=== PATIENT | male | born 1975 | race Caucasian/White ===

== ENCOUNTER 2018-07-15 16:21 | Observation (INO) | payer OTHER ==
[2018-07-15 17:37] LABS: #Basophils 0.1 thou/uL (0.0-0.2); #Eosinphils 0.4 thou/uL (0.0-0.7); #Lymphocytes 2.9 thou/uL (1.20-3.40); #Monocytes 0.7 thou/uL (0.11-0.59); #Neutrophils 9.3 thou/uL (1.40-6.50); %Basophils 0.8 % (0.0-1.0); %Eosinophils 3.2 % (0.0-10.0); %Lymphocytes 21.4 % (21.0-51.0); %Monocytes 5.2 % (0.0-10.0); %Neutrophils 69.4 % (42.0-75.0); Hemoglobin 15.5 g/dL (14.0-18.0); Mean Corpuscular HGB CONC 33.9 g/dL (32.0-36.0); Mean Corpuscular Hemoglobin 32.1 pg (27.0-31.0); Mean Corpuscular Volume 94.8 fL (78.0-98.0); Mean Platelet Volume 8.6 fL (7.4-10.4); Platelet Count 322 thou/uL (130-400); RBC Distribution Width 11.2 % (11.5-14.5); Red Blood Cell (RBC) Count 4.81 mill/uL (4.70-6.10); White Blood Cell (WBC) Count 13.4 thou/uL (4.8-10.8)
[2018-07-15 17:54] LABS: ALT (SGPT) 36 U/L (8-55); AST (SGOT) 18 U/L (5-34); Alkaline Phosphatase 51 U/L (40-150); Anion Gap 15 mmol/L (10-20); BUN (Urea Nitrogen) 16 mg/dL (8.9-20.6); Bilirubin, Total 0.4 mg/dL (0.2-1.2); Calc. Creatinine Clearance 0 mL/min (70-130); Calcium 8.6 mg/dL (7.8-10.44); Carbon Dioxide 19 mmol/L (22-29); Chloride 107 mmol/L (98-107); Estimated GFR-MDRD Greater than 90; Globulin 2.9 g/dL (2.4-3.5); Glucose 108 mg/dL (70-105); Potassium 4.2 mmol/L (3.5-5.1); Protein, Total 6.9 g/dL (6.0-8.3); Sodium 137 mmol/L (136-145)
[2018-07-15 17:59] LABS: CKMB 1.2 ng/mL (0-6.6); Troponin I Less than 0.010 ng/mL (< 0.028)
--- NOTE | 2018-07-15 17:59 | RAD ---
SINGLE VIEW OF THE CHEST: COMPARISON: None. HISTORY: Numbness and tingling. FINDINGS: Single view of the chest shows a normal sized cardiomediastinal silhouette. There is no evidence of c onsolidation, mass, or pleural effusion. The bones are unremarkable. IMPRESSION: No evidence of acute cardiopulmonary disease. POS: [facility]
[2018-07-15] MEDS ORDERED: Metoclopramide HCl 10 MG/2 ML VIAL ONE (18:05)
[2018-07-15] MEDS ORDERED: diphenhydrAMINE 50 MG/ML VIAL ONE (18:05)
--- NOTE | 2018-07-15 18:22 | CT ---
CT OF THE BRAIN WITHOUT CONTRAST: 07/15/18 COMPARISON: None. HISTORY: Lightheadedness and numbness in the left side. Headache. TECHNIQUE: Multiple contiguous axial images were obtained in a CT of the brain without contrast. FINDINGS: The brain is normal in morphology and attenuation without focal lesions or confluent areas of infarct ion. There is no evidence of hydrocephalus, intracranial hemorrhage or extra-axial fluid collections. The calvarium and overlying soft tissues are unremarkable. The visualized paranasal sinuses and masto id air cells are well aerated. IMPRESSION: No evidence of acute intracranial abnormality. POS: [facility]
[2018-07-15] MEDS ORDERED: Ondansetron HCl/PF 4 MG/2 ML Vial IVP PRN (19:42)
[2018-07-15] MEDS ORDERED: Dextrose 5% in Water 1,000 ML IV PRN (20:22)
[2018-07-15] MEDS ORDERED: HumaLOG 300 UNITS/3 ML VIAL SC PRN (20:22)
[2018-07-15] MEDS ORDERED: Dextrose 50% Abboject 50 ML SYRINGE SLOW IVP PRN (20:22)
--- NOTE | 2018-07-15 20:48 | HP ---
PRIMARY CARE PHYSICIAN: [facility]. CODE STATUS: FULL CODE. Time of evaluation: 07:35 PM CHIEF COMPLAINT: Left-sided weakness. HISTORY OF PRESENT ILLNESS: This is a 43-year-old male patient with past medical history of diabetes, hypertension, hyperlipidemia, asthma, came to the hospital after having left-sided weakness, tingling, numbness, the patient has reported that he has had this problem for 3 days, getting worse today, he reported that he can walk, but he is still uncomfortable, there are no clear triggers, no alleviating factors. The patient also reported having some chest pain for the past 2 days, symptoms are reported as moderate. REVIEW OF SYSTEMS: Constitutional: No fever or chills or generalized weakness. Respiratory: No cough, sputum production or shortness of breath. Cardiovascular: The patient reported no chest pain by me. There are no palpitations. Gastrointestinal: No nausea, vomiting, diarrhea or abdominal pain. COMMUNITY ADMINISTRATOR: The patient has no dizziness, headache. The patient has left- sided tingling, numbness, difficulty walking. Genitourinary: No burning on urination. Extremities: No leg swelling. All other systems were reviewed and negative except for the findings mentioned above. PAST MEDICAL HISTORY: Was mentioned in the HPI. PAST SURGICAL HISTORY: No surgical history. PSYCHIATRIC HISTORY: Depression. SOCIAL HISTORY: The patient denies alcohol, former drug use or medication use. FAMILY HISTORY:Reviewed and non contributory for current presentation. ALLERGIES: PENICILLIN. REPORTED MEDICATIONS: Metformin, lisinopril, and amlodipine. PHYSICAL EXAMINATION: VITAL SIGNS: On presentation, blood pressure 126/89 with heart rate 74, respiratory rate was 18, temperature 99.1. Pain was 0/10, oxygen saturation 99 % on room air. GENERAL APPEARANCE: Patient is alert and oriented, not in any acute distress. HEENT: Normocephalic, conjunctivae. Moist oral mucosa. Anicteric. NECK: No JVD. RESPIRATORY: Bilateral air entry. No rales, no wheezing. Symmetric expansion. CARDIOVASCULAR: Normal rate, regular rhythm. No murmurs, no gallop. No edema. ABDOMEN: Soft, normal bowel sounds. MUSCULOSKELETAL: Baseline range of motion and strength except for the left side and seems to be weaker. SKIN: Warm and intact. No pallor, no rash, no redness. Peripheral pulses are present. Capillary refill seems to be intact. NEUROVASCULAR: The patient has left-sided weakness and tingling and numbness, but is 2/5. PSYCHIATRIC: The patient is in good mood. No anxiety. Oriented, optimal judgment. EKG showed normal sinus rhythm at the rate of 76, QRS 86, QT corrected 414. Head CT was normal. LABORATORY DATA: Reviewed. The patient has white count 13, hemoglobin 15, MCV 94, platelet count 322. Sodium 137, potassium 4.2, chloride 107, carbon dioxide 19, anion gap 15, BUN 16, creatinine 0.6, GFR greater than 90. Glucose 108, calcium 8.6, total bilirubin 0.4, AST 18, ALT 36, alkaline phosphatase 51. Troponin was negative. Serum total protein 6.9, albumin is 4, globulin 2.9, albumin globulin ratio is 1.4. ASSESSMENT AND PLAN: The patient presented to the hospital with the following medical problem. 1. Possible transient ischemic attack, patient has left-sided weakness, we will do a stroke protocol, and workup, will follow response, no further recommendations from consultants. 2. Controlled hypertension. We will reconcile home medications, we will allow permissive hypertension, we will adjust his medicines. 3. Controlled diabetes which was 108. We will place the patient on sliding scale. 4. Leukocytosis. White count 13.4, unclear etiology, likely due to acute distress. We will monitor. We will adjust treatment as needed. 5. Deep venous thrombosis prophylaxis. 6. Chest pain that was reported for the past 2 days, we will trend troponins, EKG is normal. We will follow. The patient may benefit from further cardiac workup given his 4strong risk factors. We will defer to primary team in the morning for any further studies. As of now, no evidence of acute coronary syndrome. We will monitor on tele for any arrhythmia. [facility]OSPITALDavid
[2018-07-15 22:03] LABS: Troponin I Less than 0.010 ng/mL (< 0.028)
[2018-07-15 22:08] VITALS: BMI 31.2
--- NOTE | 2018-07-15 23:36 | ULT ---
CAROTID ULTRASOUND: 06/14/18 COMPARISON: None. HISTORY: TIA. TECHNIQUE: Multiplanar lauren scale and color doppler images were obtained in a carotid ultrasound. Spectral chase sis of the doppler waveforms were performed. FINDINGS: No significant plaque is visualized in either common or internal carotid artery. The doppler waveform s are normal bilaterally. Peak systolic velocities in the right ICA is 62 cm/s. Peak systolic velocity in the right CCA is 118 cm/s. The right ICA/CCA ratio is 0.5. Peak systolic velocities in the left ICA is 58 cm/s. Peak systolic velocity in the left CCA is 115 cm /s. The left ICA/CCA ratio is 0.5. Both vertebral arteries demonstrate antegrade flow without focal stenosis. IMPRESSION: No evidence of hemodynamically significant stenosis. POS: [facility]
[2018-07-15] MEDS: Acetaminophen 325 MG TAB PO PRN (23:45)
[2018-07-16 01:12] LABS: Troponin I Less than 0.010 ng/mL (< 0.028)
[2018-07-16] MEDS: Acetaminophen 325 MG TAB PO PRN (05:20)
[2018-07-16 05:40] LABS: #Basophils 0.1 thou/uL (0.0-0.2); #Eosinphils 0.5 thou/uL (0.0-0.7); #Lymphocytes 4.3 thou/uL (1.20-3.40); #Monocytes 0.9 thou/uL (0.11-0.59); #Neutrophils 4.9 thou/uL (1.40-6.50); %Basophils 0.8 % (0.0-1.0); %Eosinophils 4.9 % (0.0-10.0); %Lymphocytes 40.2 % (21.0-51.0); %Monocytes 8.3 % (0.0-10.0); %Neutrophils 45.8 % (42.0-75.0); Hemoglobin 14.1 g/dL (14.0-18.0); Mean Corpuscular HGB CONC 34.2 g/dL (32.0-36.0); Mean Corpuscular Volume 93.5 fL (78.0-98.0); Mean Platelet Volume 9.2 fL (7.4-10.4); Platelet Count 282 thou/uL (130-400); RBC Distribution Width 11.2 % (11.5-14.5); Red Blood Cell (RBC) Count 4.41 mill/uL (4.70-6.10); White Blood Cell (WBC) Count 10.7 thou/uL (4.8-10.8)
[2018-07-16 06:17] LABS: Anion Gap 11 mmol/L (10-20); BUN (Urea Nitrogen) 15 mg/dL (8.9-20.6); Calc. Creatinine Clearance 210 mL/min (70-130); Calcium 8.7 mg/dL (7.8-10.44); Carbon Dioxide 24 mmol/L (22-29); Cardiac Risk 4.8 (Less than 4.5); Chloride 108 mmol/L (98-107); Cholesterol 105 mg/dl (< 200 Desired); Estimated GFR-MDRD Greater than 90; Glucose 92 mg/dL (70-105); HDL Cholesterol 22 mg/dL (>60 Neg Risk); LDL Cholesterol, Calculated 50 mg/dL; Potassium 3.8 mmol/L (3.5-5.1); Sodium 139 mmol/L (136-145); Triglycerides 165 mg/dL (Less than 150)
[2018-07-16 07:42] VITALS: TEMP 98.7
--- NOTE | 2018-07-16 08:23 | PDOC.PN ---
- Subjective Encounter Start Date: 07/16/18 Encounter Start Time: 08:21 Subjective: left side still weak - Objective Resuscitation Status: Resuscitation Status FULL:Full Resuscitation MAR Reviewed: Yes Vital Signs & Weight: Vital Signs (12 hours) Temp Pulse Resp BP Pulse Ox 07/16/18 07:42 98.7 F 60 18 119/75 95 07/16/18 05:07 114/62 07/16/18 04:00 98.3 F 55 L 14 97/60 95 07/15/18 23:52 98.2 F 63 16 108/68 96 07/15/18 21:25 98.4 F 61 16 113/67 98 Weight Weight 217 lb 11.2 oz I&O: 07/15/18 07/16/18 07/17/18 06:59 06:59 06:59 Intake Total 480 Balance 480 Result Diagrams: 07/16/18 04:40 07/16/18 04:40 Additional Labs: Accuchecks 07/16/18 05:30 POC Glucose 92 Phys Exam - Physical Examination Neck: no JVD Respiratory: clear to auscultation bilateral Cardiovascular: RRR, no significant murmur Gastrointestinal: soft, non-tender Musculoskeletal: no edema Neurological: non-focal Dx/Plan (1) Weakness of left side of body Code(s): R53.1 - WEAKNESS Status: Acute (2) DM type 2 (diabetes mellitus, type 2) Status: Acute Qualifiers: Diabetes mellitus emt intermediate insulin use: without emt intermediate use Diabetes mellitus complication status: without complication Qualified Code(s): E11.9 - Type 2 diabetes mellitus without complications (3) HTN (hypertension) Code(s): I10 - ESSENTIAL (PRIMARY) HYPERTENSION Status: Chronic Qualifiers: Hypertension type: essential hypertension Qualified Code(s): I10 - Essential (primary) hypertension (4) Dyslipidemia Code(s): E78.5 - HYPERLIPIDEMIA, UNSPECIFIED Status: Chronic - Plan non-focal exam, await MRI * .
[2018-07-16] MEDS ORDERED: Lisinopril 20 MG TAB PO SCH (09:00)
[2018-07-16] MEDS ORDERED: Aspirin 325 mg Enteric Coated Tablet PO SCH (09:00)
[2018-07-16] MEDS ORDERED: Amlodipine 5 MG TAB PO SCH (09:00)
[2018-07-16] MEDS ORDERED: Enoxaparin Sodium 40 MG/0.4 ML SYRINGE SC SCH (09:00)
--- NOTE | 2018-07-16 10:25 | MRI ---
MRI BRAIN WITHOUT CONTRAST: Date: 07/16/18 HISTORY: TIA. Lightheadedness and numbness left side. Headache. FINDINGS: Correlation is made with CT scan from previous day. No evidence of restricted diffusion is seen. No infarct, hemorrhage, midline shift, or abnormal extra -axial fluid collections are identified. The ventricular size is normal and the basilar cisterns are patent. There is a mucus retention cyst versus polyp in the left maxillary sinus. IMPRESSION: No evidence of acute intracranial process. POS: [facility]
[2018-07-16 11:47] VITALS: BP 121/76
--- NOTE | 2018-07-16 12:59 | DIS ---
TRANSFER OF CARE NOTE PRIMARY CARE PHYSICIAN: [facility]. Patient from [facility]term. DATE OF ADMISSION: 07/15/2018 DATE OF DISCHARGE: 07/15/2018 discharge back to longterm. FINAL DIAGNOSES: 1. Hypertension. 2. Dyslipidemia. 3. Diabetes mellitus type 2. 4. Complaint of left-sided weakness. DISCHARGE MEDICATIONS: Lisinopril 40 mg a day, metformin 500 mg twice a day, amlodipine 5 mg a day. ALLERGIES: PENICILLIN. PENDING AT THE TIME OF DISCHARGE: Nothing. CODE STATUS: FULL CODE. HOSPITAL COURSE: The patient admitted to [facility] with complaints of left-loida ed weakness, numbness, tingling, also complains of pain. His CT scan was unremarkable. Carotid Dopp ler is unremarkable with no stenosis. MRI shows no acute process. LABORATORY DATA: Initial white count was 13.4, followup 10.7, hemoglobin 15.5, follow up 14.1, plate let count 322,000. Follow up 282,000. Chemistries: Comp metabolic profile unremarkable except for CO2 of 19, and blood sugar 108, follow up chloride 108, cholesterol is 105, LDL 50, HDL is 22. I examined him carefully while he complained of weakness. He had no true focal weakness when tested carefully the strength with the same bilaterally. Qmotac-domd-dhahvb was normal bilaterally. Heel-t o-reza was normal bilaterally. Toes were downgoing. Cranial nerves II-XII are intact. He is being discharged back to the facility from which he came. Follow up with their medical team in 7 days. Co ntinuing home medicines. CONSULTATIONS: None. PROCEDURES: No procedures.
[2018-07-16] MEDS ORDERED: metFORMIN 500 MG TAB PO SCH (17:00)
--- NOTE | 2018-07-25 11:17 | EKG ---
Test Reason : Blood Pressure : / mmHG Vent. Rate : 076 BPM Atrial Rate : 076 BPM P-R Int : 126 ms QRS Dur : 086 ms QT Int : 368 ms P-R-T Axes : 013 007 009 degrees QTc Int : 414 ms Normal sinus rhythm Normal ECG Confirmed by WISAM CABRERA M.D. ([id number]), assistant film editor JARROD CAMPBELL ([id number]) on 07/25/2018 11:17:08 AM Referred By: Confirmed By:WISAM CABRERA M.D.
== END 2018-07-16 14:33 ==
LOC: ERS 16:21 → 2SE 21:22
PROVIDERS: ADMIT Hospitalist; ATTEND Hospitalist
DX: R53.1 Weakness (principal); E11.9 Type 2 diabetes mellitus without complications; I10 Essential (primary) hypertension; E78.5 Hyperlipidemia, unspecified; J45.909 Unspecified asthma, uncomplicated; F32.9 Major depressive disorder, single episode, unspecified; D72.829 Elevated white blood cell count, unspecified; Z79.84 Long term (current) use of oral hypoglycemic drugs; Z79.899 Other long term (current) drug therapy; Z88.0 Allergy status to penicillin
CPT/HCPCS: 36415; 36416; 70450; 70551; 71045; 80048; 80053; 80061; 82553; 84484; 85025; 93005; 93880; 96365; 96372; 96375; G0378; J1200; J1650; J2765

== ENCOUNTER 2022-03-27 04:58 | Emergency (ER) ==
[2022-03-27] MEDS ORDERED: Boostrix 0.5 ML (Tdap) VIAL ONE (05:16)
[2022-03-27] MEDS ORDERED: Xylocaine 1% w/ Epi 1:100K 10 ML VIAL ONE ×2 (05:16→05:25)
[2022-03-27] MEDS ORDERED: Lidocaine 1% w/Epinephrine 1:100K 20 ML VIAL ONE (05:20)
== END 2022-03-27 06:40 ==
LOC: ERS 04:58
DX: S01.01XA Laceration without foreign body of scalp, initial encounter (principal); S40.011A Contusion of right shoulder, initial encounter; E11.9 Type 2 diabetes mellitus without complications; I10 Essential (primary) hypertension; J45.909 Unspecified asthma, uncomplicated; Z87.891 Personal history of nicotine dependence; Z79.899 Other long term (current) drug therapy; W06.XXXA Fall from bed, initial encounter; Z23 Encounter for immunization
CPT/HCPCS: 12002; 70450; 90471; 90715